=== PATIENT | female | born 1970 | race Hispanic/Latino ===

== ENCOUNTER → 2022-04-28 | Outpatient (CLI) | payer BC | LOC: MAMMO 09:43 | PROVIDERS: ATTEND Family Medicine | DX: Z12.31 Encounter for screening mammogram for malignant neoplasm of breast (principal) | CPT/HCPCS: 77067 ==

== ENCOUNTER → 2023-09-03 | Outpatient (REF) | payer BC | LOC: MAMMO 14:32 | PROVIDERS: ATTEND Family Medicine | DX: Z12.31 Encounter for screening mammogram for malignant neoplasm of breast (principal) | CPT/HCPCS: 77067 ==

== ENCOUNTER → 2025-03-13 | Outpatient (REF) | payer BC | LOC: MAMMO 14:15 | PROVIDERS: ATTEND Family Medicine | DX: Z12.31 Encounter for screening mammogram for malignant neoplasm of breast (principal) | CPT/HCPCS: 77067 ==